=== PATIENT | female | born 1990 | race Caucasian/White ===

== ENCOUNTER 2019-03-02 19:43 | Emergency (ER) | payer OTHER ==
[~2019-03-02] VITALS: Ht 165.1 cm; Wt 52.0 kg
[2019-03-02 20:26] LABS: BASOPHILS # (AUTO) 0.04 x10^3/uL (0-0.1); BASOPHILS % (AUTO) 0 % (0-1); EOSINOPHILS # (AUTO) 0.23 x10^3/uL (0-0.4); EOSINOPHILS % (AUTO) 3 % (1-7); LYMPHOCYTES # (AUTO) 2.18 x10^3/uL (1-3.4); LYMPHOCYTES % (AUTO) 25 % (22-44); MD NO; MEAN CORPUSCULAR HGB CONC 33.6 g/dL (32.4-35.8); MEAN CORPUSCULAR VOLUME 89.2 fL (80-100); MEAN PLATELET VOLUME 8.1 fL (7.4-10.4); MONOCYTES # (AUTO) 0.95 x10^3/uL (0.2-0.8); MONOCYTES % (AUTO) 11 % (2-9); NEUTROPHILS # (AUTO) 5.44 x10^3/uL (1.8-6.8); NEUTROPHILS % (AUTO) 62 % (42-75); PLATELET COUNT 290 x10^3/uL (130-400); RED BLOOD COUNT 5.17 x10^6/uL (3.82-5.3); RED CELL DISTRIBUTION WIDTH 12.9 % (9.6-15.2)
[2019-03-02 20:36] LABS: ANION GAP 4 mmol/L (5-15); CALCIUM 9.3 mg/dL (8.5-10.1); CHLORIDE 109 mmol/L (98-107); CREATININE 0.74 mg/dL (0.55-1.02)
[2019-03-02 21:08] LABS: MICROSCOPIC AUTO
[2019-03-02 21:10] LABS: CULTURE INDICATED? YES
[2019-03-02 21:54] VITALS: BP 122/60
== END 2019-03-02 21:58 | disposition home or self-care (01) ==
LOC: ED 19:50
DX: N30.00 Acute cystitis without hematuria (principal); R11.0 Nausea
CPT/HCPCS: 36415; 80048; 81001; 82040; 84703; 85025; 87077; 87086; 87186; 99283

== ENCOUNTER 2020-11-27 10:59 | Emergency (ER) | payer OTHER ==
[~2020-11-27] VITALS: Ht 165.1 cm; Wt 50.0 kg
[2020-11-27 11:07] VITALS: BP 116/73
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
[2020-11-27 12:00] LABS: ALBUMIN 3.1 g/dL (3.4-5.0); ANION GAP 4 mmol/L (5-15); CALCIUM 8.5 mg/dL (8.5-10.1); CHLORIDE 111 mmol/L (98-107)
[2020-11-27 12:02] LABS: SALICYLATE LEVEL < 1.7 mg/dL (2.8-20.0)
[2020-11-27 12:07] LABS: ALANINE AMINOTRANSFERASE 12 U/L (12-78); ALKALINE PHOSPHATASE 42 U/L (45-117); BILIRUBIN,TOTAL 0.3 mg/dL (0.2-1.0); CREATININE 0.79 mg/dL (0.55-1.02); TOTAL PROTEIN 7.2 g/dL (6.4-8.2)
[2020-11-27 12:18] LABS: BASOPHILS % (AUTO) 1 % (0-1); EOSINOPHILS % (AUTO) 1 % (1-7); LYMPHOCYTES % (AUTO) 17 % (22-44); MEAN CORPUSCULAR HEMOGLOBIN 29.3 pg (27.0-34.8); MEAN CORPUSCULAR HGB CONC 34.8 g/dL (32.4-35.8); MEAN PLATELET VOLUME 7.3 fL (7.4-10.4); MONOCYTES % (AUTO) 8 % (2-9); NEUTROPHILS % (AUTO) 74 % (42-75); PLATELET COUNT 329 x10^3/uL (130-400); RED CELL DISTRIBUTION WIDTH 12.8 % (9.6-15.2)
[2020-11-27 12:18] LABS: AMPHETAMINE SCREEN, URINE Negative (Negative); BARBITURATE SCREEN, URINE Negative (Negative); BENZODIAZEPINE SCREEN, URINE Negative (Negative); CANNABINOID SCREEN, URINE Positive (Negative); COCAINE SCREEN, URINE Negative (Negative); METHADONE SCREEN, URINE Negative (Negative); OPIATE SCREEN, URINE Negative (Negative)
--- NOTE | 2020-11-27 13:05 | NUR ---
PATIENT RESTING IN GURNEY WITH EYES CLOSED, RESP EVEN AND UNLABORED, SUICIDE PRECAUTIONS IN PLACE, SITTER IN LINE OF SIGHT. FOOD TRAY ORDERED.
--- NOTE | 2020-11-27 14:01 | NUR ---
PATIENT RESTING IN GURNEY WITH EYES CLOSED, RESP EVEN AND UNLABORED, SUICIDE PRECAUTIONS IN PLACE, SITTER IN LINE OF SIGHT. FOOD TRAY ORDERED.
--- NOTE | 2020-11-27 14:15 | NUR ---
ELADIA BARRON APRN AT BEDSIDE FOR EVALUATION.
--- NOTE | 2020-11-27 14:54 | NUR ---
BEATRICE, PSYCH SALESPERSON SHOES STILL AT BEDSIDE.
--- NOTE | 2020-11-27 15:32 | NUR ---
PER EMERITA BARRON PATIENT TO BE KEPT ON L2K. FOOD TRAY PROVIDED TO PATIENT, PLACED ON HOSPITAL BED, SUICIDE PRECAUTIONS IN PLACE, SITTER IN LINE OF SIGHT, NO FURTHER NEEDS AT THIS TIME.
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
--- NOTE | 2020-11-27 17:14 | NUR ---
PATIENT USING HALLWAY PHONE, SITTER IN LINE OF SIGHT.
--- NOTE | 2020-11-27 17:30 | NUR ---
THROUGHPUT: PT ACCEPTED TO [facility], [facility] SIGNED AND PACKET MADE, ALON[employer]A [employer] OFFICER AT 1830
--- NOTE | 2020-11-27 17:39 | NUR ---
REPORT TO EMMA PRESLEY AT [facility] FOR TRANSFER OF PATIENT CARE.
--- NOTE | 2020-11-27 17:42 | NUR ---
DINNER TRAY PROVIDED TO PATIENT AND SHE IS UPDATED ON POC.
--- NOTE | 2020-11-27 18:11 | NUR ---
IV removed with tip intact. Patient given discharge instructions and they have confirmed that they understand the instructions. Patient ambulatory with steady gait with EMS. NAD, all questions answered appropriately, denies additional needs at this time. No personal belongings left in room after discharge.
== END 2020-11-27 18:12 ==
LOC: ED 11:29
DX: T42.4X2A Poisoning by benzodiazepines, intentional self-harm, initial encounter (principal); T14.91XA Suicide attempt, initial encounter; R94.31 Abnormal electrocardiogram [ECG] [EKG]; Y92.89 Other specified places as the place of occurrence of the external cause
CPT/HCPCS: 36415; 80053; 80299; 80307; 80320; 80329; 84703; 85025; 93005; 99285; G0480